=== PATIENT | female | born 1940 | race Caucasian/White ===

== ENCOUNTER → 2016-10-04 | Outpatient (CLI) | payer OTHER ==
[~2016-10-04] MED LIST: BYSTOLIC10 MG PO; BYSTOLIC20 MG PO; CLONIDINE HCL0.2 MG PO; COMPAZINE10 MG PO; Catapres PO; DESYREL100 MG PO; DETROL LA4 MG PO; DIOVAN160 MG PO; DITROPAN XL10 MG PO; Ditropan XL PO; ESCITALOPRAM OXA5 MG PO; FLONASE16 G1 BOTH NARES; Flonase BOTH NARES; LIALDA1.2 GM PO; Norvasc PO; PRILOSEC40 MG PO; Questran PO; Symbicort 160-4.5 mc IH; TRAZODONE HCL100 MG PO; VALACYCLOVIR500 MG PO; VITAMIN D32000 UNI1 PO; VITAMIN D32000 UNIT PO; VITAMIN D400 UNIT PO; Vitamin D PO; Voltaren PO
== END ==
LOC: MRI 10:12 → RAD 11:00
DX: M96.1 Postlaminectomy syndrome, not elsewhere classified (principal)
CPT/HCPCS: 72157